=== PATIENT | female | born 1940 | race Caucasian/White ===

== ENCOUNTER 2018-01-02 12:52 | Emergency (ER) | payer OTHER ==
[~2018-01-02] VITALS: Ht 152.4 cm; Wt 66.2 kg
[~2018-01-02 12:52] MED LIST: APAP/HYDROCODON1 T13 PO; COL100 PO; DEX PO; LOSARTAN POTASS1 TA6 PO; PHEDML PO; PRILOSEC20 MG PO; PROMETH PO
[2018-01-02 12:58] VITALS: Ht 152.4 cm; Wt 66.2 kg
[2018-01-02 14:20] VITALS: BP 122/78
== END 2018-01-02 14:20 | disposition home or self-care (01) ==
LOC: ED 12:52
DX: S43.101A Unspecified dislocation of right acromioclavicular joint, initial encounter (principal); E78.00 Pure hypercholesterolemia, unspecified; I10 Essential (primary) hypertension; Z88.0 Allergy status to penicillin; Z88.7 Allergy status to serum and vaccine; Z91.09 Other allergy status, other than to drugs and biological substances; W18.30XA Fall on same level, unspecified, initial encounter; Y93.89 Activity, other specified; Y99.8 Other external cause status; Y92.89 Other specified places as the place of occurrence of the external cause

== ENCOUNTER 2018-10-30 01:24 | Emergency (ER) | payer OTHER ==
[~2018-10-30] VITALS: Ht 152.4 cm; Wt 66.7 kg
[2018-10-30 01:31] VITALS: Ht 152.4 cm; Wt 66.7 kg
[2018-10-30 02:57] LABS: BASOPHIL % 0.5 % (0-2); PLATELET COUNT 268 x10^3mcL (130-400); RED CELL DISTRIBUTION WIDTH 14.2 % (11.5-14.5)
[2018-10-30 03:02] LABS: CALCIUM 9.7 mg/dL (8.5-10.1); CARBON DIOXIDE 26.9 mmol/L (21-32); CHLORIDE SERUM 107 mmol/L (98-107); CREATININE SERUM 0.7 mg/dL (0.6-1.0); GLUCOSE SERUM 94 mg/dL (74-106); SODIUM SERUM 143 mmol/L (136-145)
[2018-10-30 03:02] LABS: UA SPECIFIC GRAVITY <=1.005 (1.005-1.035); microscopic required? YES; urine erythrocyte TRACE (NEGATIVE)
[2018-10-30 03:13] LABS: ALBUMIN 3.6 g/dL (3.4-5.0); ALKALINE PHOSPHATASE 118 U/L (46-116); ALT/SGPT 23 U/L (14-59); AST/SGOT 20 U/L (15-37); BILIRUBIN TOTAL 0.27 mg/dL (0.20-1.00); TOTAL PROTEIN, SERUM 7.9 g/dL (6.4-8.2)
[2018-10-30 06:12] VITALS: BP 139/66
== END 2018-10-30 06:12 | disposition home or self-care (01) ==
LOC: ED 01:24
PROVIDERS: Emergency Medicine
DX: I16.0 Hypertensive urgency (principal); E78.00 Pure hypercholesterolemia, unspecified; Z88.0 Allergy status to penicillin; Z88.8 Allergy status to other drugs, medicaments and biological substances; Z85.3 Personal history of malignant neoplasm of breast
CPT/HCPCS: 36415; 83880; Q0092

== ENCOUNTER 2019-06-08 11:23 | Emergency (ER) | payer OTHER ==
[~2019-06-08] VITALS: Ht 152.4 cm; Wt 66.2 kg
[2019-06-08 16:04] VITALS: BP 120/60
== END 2019-06-08 16:04 | disposition home or self-care (01) ==
LOC: ED 11:23
DX: S29.011A Strain of muscle and tendon of front wall of thorax, initial encounter (principal); I10 Essential (primary) hypertension; E78.00 Pure hypercholesterolemia, unspecified; Z98.890 Other specified postprocedural states; Z90.13 Acquired absence of bilateral breasts and nipples; Z88.8 Allergy status to other drugs, medicaments and biological substances; Z88.0 Allergy status to penicillin; X58.XXXA Exposure to other specified factors, initial encounter; Y93.89 Activity, other specified; Y92.89 Other specified places as the place of occurrence of the external cause; Y99.8 Other external cause status
CPT/HCPCS: 76641

== ENCOUNTER 2020-03-03 11:24 | Emergency (ER) | payer OTHER, MEDICAID, SELFPAY ==
[~2020-03-03] VITALS: Ht 152.4 cm; Wt 67.6 kg
[2020-03-03 11:47] VITALS: Ht 152.4 cm; Wt 67.6 kg
[2020-03-03 13:10] LABS: BASOPHIL % 0.4 % (0-2); PLATELET COUNT 257 x10^3mcL (130-400)
[2020-03-03 13:11] LABS: RED CELL DISTRIBUTION WIDTH 15.1 % (11.5-14.5)
[2020-03-03 13:24] LABS: CALCIUM 9.8 mg/dL (8.5-10.1); CARBON DIOXIDE 26.2 mmol/L (21-32); CHLORIDE SERUM 106 mmol/L (98-107); CREATININE SERUM 0.7 mg/dL (0.6-1.0); GLUCOSE SERUM 89 mg/dL (74-106); POTASSIUM SERUM 4.1 mmol/L (3.5-5.1); SODIUM SERUM 139 mmol/L (136-145)
[2020-03-03 13:29] LABS: ALBUMIN 3.9 g/dL (3.4-5.0); ALKALINE PHOSPHATASE 104 U/L (46-116); ALT/SGPT 21 U/L (14-59); AST/SGOT 14 U/L (15-37); BILIRUBIN TOTAL 0.42 mg/dL (0.20-1.00); C REACTIVE PROTEIN 0.7 mg/dL (<=0.9); LACTIC DEHYDROGENASE (LDH) 188 U/L (100-190); TOTAL PROTEIN, SERUM 7.5 g/dL (6.4-8.2)
[2020-03-03 14:06] LABS: microscopic required? NO
[2020-03-03 14:32] LABS: UA SPECIFIC GRAVITY 1.015 (1.005-1.035); urine erythrocyte NEGATIVE (NEGATIVE)
[2020-03-03 15:16] VITALS: BP 123/64
== END 2020-03-03 15:16 | disposition home or self-care (01) ==
LOC: ED 11:24
PROVIDERS: Emergency Medicine
DX: B34.9 Viral infection, unspecified (principal); I10 Essential (primary) hypertension; E78.00 Pure hypercholesterolemia, unspecified; Z20.828 Contact with and (suspected) exposure to other viral communicable diseases; Z85.3 Personal history of malignant neoplasm of breast; Z90.11 Acquired absence of right breast and nipple; Z98.890 Other specified postprocedural states; Z88.0 Allergy status to penicillin; Z88.8 Allergy status to other drugs, medicaments and biological substances; Z88.7 Allergy status to serum and vaccine
CPT/HCPCS: 36415; 36600; 83880; 85378; 87804; Q0092; U0003-CS

== ENCOUNTER 2020-06-10 18:03 | Emergency (ER) | payer OTHER, MEDICAID ==
[~2020-06-10] VITALS: Ht 160 cm; Wt 68.5 kg
[2020-06-10 18:13] VITALS: Ht 160 cm; Wt 68.5 kg
[2020-06-10 19:21] VITALS: BP 104/69
== END 2020-06-10 19:21 | disposition home or self-care (01) ==
LOC: ED 18:03
DX: L27.0 Generalized skin eruption due to drugs and medicaments taken internally (principal); I10 Essential (primary) hypertension; E11.9 Type 2 diabetes mellitus without complications; R00.0 Tachycardia, unspecified; E78.00 Pure hypercholesterolemia, unspecified; Z88.0 Allergy status to penicillin; Z88.8 Allergy status to other drugs, medicaments and biological substances
CPT/HCPCS: J1100; Q0163